=== PATIENT | male | born 1945 | race Caucasian/White ===

== ENCOUNTER 2018-02-27 19:11 | Emergency (ER) | payer OTHER, MEDICARE ==
[~2018-02-27] VITALS: Ht 182.9 cm; Wt 91.2 kg
[2018-02-27 19:11] VITALS: BP_SYST 98
[2018-02-27] MEDS ORDERED: NACL 0.9% 1,000 ML IV ONE (20:15)
[2018-02-27 20:39] LABS: BASOPHILS % (AUTO) 0.7 % (0.0-2.0); EOSINOPHILS # (AUTO) 0.1 K/uL (0.0-0.4); EOSINOPHILS % (AUTO) 2.2 % (0.0-4.0); HEMATOCRIT 36.2 % (36-54); HEMOGLOBIN 12.3 g/dL (14.0-18.0); LYMPHOCYTES # (AUTO) 1.2 K/uL (1.0-5.5); LYMPHOCYTES % (AUTO) 28.8 % (20.5-51.5); MEAN CORPUSCULAR HEMOGLOBIN 34 pg (27-31); MEAN CORPUSCULAR HGB CONC 34 % (32-36); MEAN CORPUSCULAR VOLUME 100 fL (79.0-98.0); MONOCYTES # (AUTO) 0.4 K/uL (0.0-1.0); MONOCYTES % (AUTO) 9.1 % (1.7-9.3); NEUTROPHILS # (AUTO) 2.5 K/uL (1.8-7.7); NEUTROPHILS % (AUTO) 59.2 % (40.0-70.0); PLATELET COUNT (AUTO) 171 K/uL (130-430); RED BLOOD CELL COUNT(AUTO) 3.62 MIL/uL (4.2-6.2); RED CELL DISTRIBUTION WIDTH 12.3 % (9.0-15.0); WHITE BLOOD COUNT (AUTO) 4.2 K/uL (4.8-10.8)
[2018-02-27 20:47] LABS: PROTHROMBIN TIME 10.4 SECS (9.5-12.5)
[2018-02-27 21:14] LABS: ANION GAP 15 (5-15); CALCIUM 8.4 mg/dL (8.4-11.0); CHLORIDE 104 mmol/L (98-107); CREATININE 1.63 mg/dL (0.55-1.30); GLUCOSE 121 mg/dL (70-99); SODIUM SERUM 139 mmol/L (136-145); UREA NITROGEN, BLOOD 26 mg/dL (8-21)
[2018-02-27 21:19] LABS: ALANINE AMINOTRANSFERASE 74 U/L (12-78); ALBUMIN 3.4 g/dL (3.4-4.8); ALCOHOL, BLOOD 177 mg/dL (<10); ASPARTATE AMINOTRANSFERASE 53 U/L (10-37); TOTAL BILIRUBIN 0.4 mg/dL (0.0-1.0)
[2018-02-27] MEDS ORDERED: MONT10TA25 PO (22:07)
[2018-02-27] MEDS ORDERED: TAMS-11 PO (22:08)
[2018-02-27] MEDS ORDERED: ALLO100T91 PO (22:08)
[2018-02-27] MEDS ORDERED: FLUT1DIS3 IH (22:10)
[2018-02-27] MEDS ORDERED: FINA5TAB3 PO (22:11)
[2018-02-27] MEDS ORDERED: ASM110 INH (22:11)
[2018-02-27] MEDS ORDERED: TRAM50TA2 PO (22:12)
[2018-02-27] MEDS ORDERED: MIDO5TAB PO (22:13)
[2018-02-27] MEDS ORDERED: HYDR-2470 PO (22:14)
[2018-02-27] MEDS ORDERED: FAMO-132 PO (22:29)
[2018-02-27] MEDS ORDERED: FAMO20TA8 PO (22:29)
[2018-02-27] MEDS ORDERED: WARF1TAB2 PO (22:30)
[2018-02-27] MEDS ORDERED: CARV3.1246 PO (22:31)
[2018-02-27] MEDS ORDERED: FURO80TA86 PO (22:31)
[2018-02-27] MEDS ORDERED: LIP20 PO (22:33)
[2018-02-27] MEDS ORDERED: VIT1TABL44 PO (22:33)
[2018-02-27] MEDS ORDERED: FOLI-43 PO (22:34)
[2018-02-27 23:17] VITALS: BP_SYST 119
== END 2018-02-27 23:17 | disposition home or self-care (01) ==
LOC: SED 19:11
DX: R55 Syncope and collapse (principal); F10.129 Alcohol abuse with intoxication, unspecified; E11.9 Type 2 diabetes mellitus without complications; I10 Essential (primary) hypertension; F03.90 Unspecified dementia, unspecified severity, without behavioral disturbance, psychotic disturbance, mood disturbance, and anxiety
CPT/HCPCS: 36415; 70450; 71045; 80053; 82550; 82962; 84484; 85025; 85379; 85610; 93005; 96360; 99284; G0482; J7030